=== PATIENT | female | born 1975 | race Caucasian/White ===

== ENCOUNTER 2019-04-25 15:21 | Emergency (ER) | payer OTHER ==
[~2019-04-25] VITALS: Ht 167.6 cm; Wt 81.6 kg
[2019-04-25 15:23] VITALS: BP 93/53
--- NOTE | 2019-04-25 15:23 | NUR ---
PT BIBA ALS AND PLACED IN BED 5
--- NOTE | 2019-04-25 15:25 | NUR ---
PT BIBA FOR ALOC, PT WAS FOUND AT [facility]ARK WITH A BOTTLE OF ALCOHOL NEXT TO HER. PT DENIES DRINKING AND USE OF DRUGS. PT IS AA0X1. PT DENIES N.V.D, CP, AND SOB. BILATERAL STRENGTH IS NORMAL. PERRL 3MM SLUGGISH. UNABLE TO ACCESS PT GAIT AT THIS TIME. PT ON MONITOR AND POSITION FOR COMFORT. HOB ELEVATED. ER MD AT BEDSIDE. ALLERGY: UNOBTAINABLE HX: UNOBTAINABLE RX: UNOBTAINABLE.
[2019-04-25] MEDS ORDERED: NACL 0.9% 1,000 ML IV ONE (15:40)
[2019-04-25 16:10] LABS: BASOPHILS % (AUTO) 0.9 % (0.0-2.0); EOSINOPHILS # (AUTO) 0.1 K/uL (0-0.4); EOSINOPHILS % (AUTO) 1.4 % (0.0-4.0); HEMATOCRIT 39.6 % (36-48); HEMOGLOBIN 13.1 g/dL (12.0-16.0); LYMPHOCYTES # (AUTO) 1.6 K/uL (2.5-16.5); MEAN CORPUSCULAR HEMOGLOBIN 31 pg (27-31); MEAN CORPUSCULAR HGB CONC 33 g/dL (33-37); MEAN CORPUSCULAR VOLUME 94.8 fL (80-94); MONOCYTES # (AUTO) 0.3 K/uL (0.8-1.0); MONOCYTES % (AUTO) 5.9 % (1.7-9.3); NEUTROPHILS # (AUTO) 3.2 K/uL (1.8-7.7); NEUTROPHILS % (AUTO) 61.8 % (42.2-75.2); PLATELET COUNT (AUTO) 223 K/uL (140-450); RED BLOOD CELL COUNT(AUTO) 4.18 MIL/uL (4.20-5.40); RED CELL DISTRIBUTION WIDTH 14.3 % (11.6-13.7); WHITE BLOOD COUNT (AUTO) 5.2 K/uL (4.8-10.8)
--- NOTE | 2019-04-25 16:16 | NUR ---
PT MOTHER AT BEDSIDE. PT MOTHER IS SPEAKING TO MD JACOBSON AND STATES THAT SHE WOULD LIKE TO TAKE PT HOME.
[2019-04-25 16:18] VITALS: BP 93/53
--- NOTE | 2019-04-25 16:18 | NUR ---
Patient discharged with v/s stable. Written and verbal after care instructions given and explained. Patient verbalized understanding. Wheel Chair Assisted with to car. All questions addressed prior to discharge. Advised to follow up with PMD.
[2019-04-25 16:53] LABS: ALBUMIN 2.9 g/dL (3.4-5.0); ANION GAP 14.4 (8-16); CARBON DIOXIDE 23.9 mmol/L (21-32); CREATININE 0.5 mg/dL (0.6-1.3); POTASSIUM 3.3 mmol/L (3.5-5.1); TOTAL BILIRUBIN 0.1 mg/dL (0.0-1.0)
--- NOTE | 2019-04-27 12:55 | NUR ---
Late entry. Confirmed with RN that 0.9 NS IV 1000ml completed at 1610
== END 2019-04-25 16:18 | disposition home or self-care (01) ==
LOC: MED 15:21
DX: F10.129 Alcohol abuse with intoxication, unspecified (principal); R40.4 Transient alteration of awareness
CPT/HCPCS: 36415; 80053; 85025; 93005; 99284; G0482; J7030

== ENCOUNTER 2022-08-22 20:26 | Emergency (ER) | payer OTHER ==
[~2022-08-22] VITALS: Ht 165.1 cm; Wt 63.5 kg
[2022-08-22 20:40] VITALS: BP 113/77
--- NOTE | 2022-08-22 23:46 | NUR ---
CALLED TO ROOM, NO ANSWER
--- NOTE | 2022-08-22 23:58 | NUR ---
CALLED AT THIS TIME, NO ANSWER. PT LWBS
== END 2022-08-22 23:58 | disposition left against medical advice (07) ==
LOC: MED 20:26
DX: F10.129 Alcohol abuse with intoxication, unspecified (principal); Z79.899 Other long term (current) drug therapy; Y90.9 Presence of alcohol in blood, level not specified
CPT/HCPCS: 99281